=== PATIENT | female | born 1960 | race Caucasian/White ===

== ENCOUNTER 2019-03-10 00:44 | Emergency (ER) | payer BC ==
[~2019-03-10] VITALS: Ht 160 cm; Wt 115.7 kg
[2019-03-10 02:36] VITALS: BP 135/51
== END 2019-03-10 03:23 | disposition home or self-care (01) ==
LOC: ED 02:58
DX: N13.2 Hydronephrosis with renal and ureteral calculous obstruction (principal)
CPT/HCPCS: 36415; 74176; 80053; 81001; 83690; 85025; 87086; 96374; 96375; 99284; J1885; J2405; Q0162